=== PATIENT | male | born 1950 | race Caucasian/White ===

== ENCOUNTER → 2016-04-09 | Outpatient (CLI) | payer BC ==
--- NOTE | 2016-04-09 13:34 | US ---
Ultrasound of the Abdomen Complete History: R 10.84, generalized Abdominal pain. Findings: Gallbladder: No shadowing calculi, wall thickening, or pericholecystic fluid. Common bile duct is 3 m m in diameter which is normal. Liver: Diffusely increased in echogenicity and measures 20 cm in length. No definite focal lesions. N o ascites. Renal: Right kidney measures 12 x 6 x 5 cm and left kidney 12 x 6 x 5 cm without hydronephrosis in ei ther kidney. Spleen: Homogeneous and 13 cm in length without splenomegaly. Pancreas: Homogeneous without peripancreatic fluid. Aorta: Visualized upper abdominal aorta demonstrates no aneurysm. IVC: Grossly patent. Impression: 1. No cholelithiasis or biliary ductal dilation. 2. Hepatomegaly and hepatic steatosis which limits evaluation for focal hepatic lesions. 3. No aortic aneurysm. 4. Consider additional CT abdomen and pelvis if clinically indicated.
== END ==
LOC: FIMAGING 12:03
PROVIDERS: ATTEND Internal Medicine Gastroenterology
DX: R10.84 Generalized abdominal pain (principal); R16.0 Hepatomegaly, not elsewhere classified

== ENCOUNTER 2016-07-07 10:37 | Emergency (ER) | payer BC ==
[2016-07-07 10:51] VITALS: RESP 16; TEMP 97.5
--- NOTE | 2016-07-07 11:15 | CPEKG ---
Heart Rate: 64 RR Interval: 938 P-R Interval: 180 QRSD Interval: 104 QT Interval: 400 QTC Interval: 413 P [place]: 10 QRS [place]: 35 T Wave [place]: 14 EKG Severity - NORMAL ECG - EKG Impression: SINUS RHYTHM Electronically Signed By: Jose Shah 07-Jul-2016 11:52:10
[2016-07-07] MEDS ORDERED: NS 500 ML IV ONE (11:23)
--- NOTE | 2016-07-07 11:25 | EDPHY ---
H & P Stated Complaint: increased fatigue HPI/ROS: CHIEF COMPLAINT: Weakness fatigue HISTORY OF PRESENT ILLNESS: Patient complains of several days history of weakness fatigue. Over the past 3-5 days he has been increasingly tired, falling asleep easier. He also feels somewhat lightheaded when he stands up. No actual dizziness, nausea vomiting. No chest pain or shortness of breath. No cough or congestion. No fever chills. No urinary complaints. No abdominal pain. No bleeding any site. No rashes or lesions. No neck pain or stiffness. No headache. No signs of stroke per spouse at bedside. No other associated complaints or modifying factors. Has an appoint with his tool grinder operator today at 3:00 p.m. REVIEW OF SYSTEMS: Ten systems reviewed and are negative unless otherwise noted in the HPI EXAMINATION General Appearance: Alert, no distress Head: normocephalic, atraumatic Eyes: Right pupil is reactive and round. Left eye is plastic. ENT, Mouth: Mucous membranes moist. Uvula midline. No erythema or edema. Neck: Normal inspection, supple, non-tender Respiratory: Lungs are clear to auscultation. No wheezing, rhonchi or crackles. Cardiovascular: Regular rate and rhythm. No murmur. Pulses intact distally. Gastrointestinal: Abdomen is soft and nontender. No tympany rigidity Back: non-tender, no bony abnormalities Neurological: A&O, nonfocal, normal gait. Strength is symmetric. No pronator drift. No dysmetria. Steady gait. NIH stroke scale 0. Skin: Warm and dry, no rash Extremities: Nontender, no pedal edema Psychiatric: Mood and affect normal DIFFERENTIAL DIAGNOSES: Including but not limited to pneumonia, influenza, UTI, electrolyte abnormality , hypothyroid, low testosterone anemia MDM: 11:20 a.m. Generalized fatigue and weakness. No abnormality on EKG or vital signs. No signs of sepsis by history examination. Does have an aortic valvulopathy with systolic murmur that is known to him. Echo was done within the past year. He actually has an appointment with his tool grinder operator today at 3:00 p.m.. 1:00 p.m. Laboratory studies are all within normal limits. Chest x-ray is not revealing of pneumonia. Orthostatics were negative. He is feeling somewhat better since time of arrival. No acute findings on the workup today. He has an appoint with his tool grinder operator today at 3:00 p.m. that he would like to keep. He would like to be discharged home at this time. I do feel he is stable for discharge home to follow up with them accordingly. I do not feel he needs a stat echo, nor does he want 1. He will be discharged home stable condition at this time to follow up with his tool grinder operator today at 3:00 p.m.. SUPERVISION: This patient was independently evaluated without direct examination by the attending physician. Case was discussed with attending physician. Source: Patient, Family, Old records Exam Limitations: No limitations - Personal History Current Tetanus Diphtheria and Acellular Pertussis (TDAP): Yes Tetanus Vaccine Date: < 10 years - Medical/Surgical History Hx Asthma: Yes Hx Chronic Respiratory Disease: No Hx Diabetes: Yes Hx Cardiac Disease: No Hx Renal Disease: No Hx Cirrhosis: No Hx Alcoholism: No Hx HIV/AIDS: No Hx Splenectomy or Spleen Trauma: No Other PMH: Back and neck surgery. Stable thoracic aortic aneurysm with mild aortic insufficiency. Orthopedic procedures. Borderline diabetes. Sleep apnea. Hypertension. Arthritis. Environmental allergies. Recurrent prostatitis. Migraine headaches - Social History Smoking Status: Never smoked Constitutional: Initial Vital Signs Temperature (C) 97.5 F 07/07/16 10:48 Heart Rate 63 07/07/16 10:48 Respiratory Rate 16 07/07/16 10:48 Blood Pressure 117/70 07/07/16 10:48 O2 Sat (%) 97 07/07/16 10:48 O2 Delivery Mode Room Air Allergies/Adverse Reactions: hydrocodone bitartrate [From Vicodin] Allergy (Verified 02/27/16 15:02) Other-Enter Comments Penicillins Allergy (Verified 02/27/16 15:02) Anaphylaxis OPIATES Allergy (Uncoded 07/07/15 09:58) Anxiety Home Medications: Medication Instructions Recorded Albuterol [Proventil Inhaler HFA 1 - 2 puffs IH Q4H PRN 02/23/16 (*)] Ascorbic Acid [Vitamin C 500 mg 500 mg PO DAILY 02/23/16 (*)] Atorvastatin Calcium [Lipitor 10 10 mg PO DAILY 02/23/16 mg (*)] Botulinum Toxin Type A [Botox] 31 - 33 unit IM Q84D 02/23/16 Budesonide/Formoterol 160/4.5 1 puffs IH BID 02/23/16 [Symbicort 160-4.5 Mcg Inh (*)] Calcium Carbonate [Oyster Shell 500 mg PO DAILY 02/23/16 Calcium 500 mg (*)] Calcium Polycarbophil [FIBERCON] 2 tab PO DAILY 02/23/16 Cholecalciferol Vit D3 [Vitamin D3 4,000 units PO DAILY 02/23/16 (*)] Docusate Sodium [Colace 100 MG (*)] 100 mg PO DAILY 02/23/16 Eletriptan HBr [Relpax] 40 mg PO ONCE PRN 02/23/16 Esomeprazole Mag Trihydrate 80 mg PO HS 02/23/16 [Nexium] ISOMETHEPT/ACETAMINOP/DICHLPHN 1 - 2 each PO AD PRN 02/23/16 [MIDRIN CAPSULE] LORazepam [Ativan (*)] 1 mg PO Q6H PRN 02/23/16 Melatonin [Melatonin 3 MG (*)] 10 mg PO HS 02/23/16 Montelukast Sodium [Singulair 10 10 mg PO DAILY 02/23/16 mg (*)] Multivitamins [Multivitamin (*)] 1 each PO DAILY 02/23/16 Simethicone [GAS-X] 125 mg PO DAILY PRN 02/23/16 TESTOSTERONE [Androgel 1.62% pump] 2 guerda TD DAILY 02/23/16 Triamcinolone Acetonide [Nasacort] 2 spray EACHNARE HS 02/23/16 ZOLPIDEM TARTRATE [Ambien CR 12.5 12.5 mg PO HS 02/23/16 mg] celeCOXIB [Celebrex (*)] 200 mg PO DAILY 02/23/16 metFORMIN HCL [Glucophage 500 mg 500 mg PO BIDMEAL 02/23/16 (*)] Tobramycin/Dexameth [Tobradex opht 1 drops OP Q6 PRN 02/27/16 drops (*)] Tamsulosin HCl [Flomax 0.4 MG (*)] 0.4 mg PO DAILY #30 cap 02/29/16 Medical Decision Making - Diagnostics Imaging Results: Imaging Impressions Chest X-Ray 07/07/16 11:23 Impression: 1. Mild peribronchial thickening suggesting airways disease/bronchitis. 2. Mild cardiomegaly. - Data Points Laboratory Results: Laboratory Results 07/07/16 11:23 07/07/16 11:05 07/07/16 07/07/16 07/07/16 11:23 11:05 11:05 WBC 5.56 10^3/uL 10^3/uL (3.80-9.50) RBC 6.43 10^6/uL H 10^6/uL (4.40-6.38) Hgb 15.2 g/dL g/dL (13.7-17.5) Hct 49.3 % % (40.0-51.0) MCV 76.7 fL L fL (81.5-99.8) MCH 23.6 pg L pg (27.9-34.1) MCHC 30.8 g/dL L g/dL (32.4-36.7) RDW 19.7 % H % (11.5-15.2) Plt Count 130 10^3/uL L 10^3/uL (150-400) MPV 10.6 fL fL (8.7-11.7) Neut % (Auto) 62.9 % % (39.3-74.2) Lymph % (Auto) 23.6 % % (15.0-45.0) [place] % (Auto) 9.7 % % (4.5-13.0) Eos % (Auto) 2.9 % % (0.6-7.6) Baso % (Auto) 0.5 % % (0.3-1.7) Nucleat RBC Rel Count 0.0 % % (0.0-0.2) Absolute Neuts (auto) 3.50 10^3/uL 10^3/uL (1.70-6.50) Absolute Lymphs (auto) 1.31 10^3/uL 10^3/uL (1.00-3.00) Absolute Monos (auto) 0.54 10^3/uL 10^3/uL (0.30-0.80) Absolute Eos (auto) 0.16 10^3/uL 10^3/uL (0.03-0.40) Absolute Basos (auto) 0.03 10^3/uL 10^3/uL (0.02-0.10) Absolute Nucleated RBC 0.00 10^3/uL 10^3/uL (0-0.01) Immature Gran % 0.4 % % (0.0-1.1) Immature Gran # 0.02 10^3/uL 10^3/uL (0.00-0.10) PT 13.3 SEC SEC (12.0-15.0) INR 1.02 (0.83-1.16) APTT 26.2 SEC SEC (23.0-38.0) Sodium 142 mEq/L mEq/L (134-144) Potassium 4.5 mEq/L mEq/L (3.5-5.2) Chloride 107 mEq/L mEq/L (97-110) Carbon Dioxide 29 mEq/l mEq/l (22-31) Anion Gap 6 mEq/L L mEq/L (8-16) BUN 25 mg/dL H mg/dL (7-23) Creatinine 0.9 mg/dL mg/dL (0.7-1.3) Estimated GFR > 60 Glucose 86 mg/dL mg/dL (70-100) Calcium 9.2 mg/dL mg/dL (8.5-10.4) Total Bilirubin 0.6 mg/dL mg/dL (0.1-1.4) Conjugated Bilirubin 0.3 mg/dL mg/dL (0.0-0.5) Unconjugated Bilirubin 0.3 mg/dL mg/dL (0.0-1.1) AST 21 IU/L IU/L (17-59) ALT 35 IU/L IU/L (21-72) Alkaline Phosphatase 58 IU/L IU/L (38-126) Troponin I < 0.012 ng/mL ng/mL (0-0.034) NT-Pro-B Natriuret Pep 61 pg/mL pg/mL (0-125) Total Protein 6.6 g/dL g/dL (6.3-8.2) Albumin 3.9 g/dL g/dL (3.5-5.0) Lipase 90.0 IU/L IU/L (23-300) TSH 1.810 uIU/mL uIU/mL (0.465-4.680) Total Testosterone 395 ng/dL ng/dL (71.8-623) Medications Given: Discontinued Medications Sodium Chloride (Ns) 500 mls @ 0 mls/hr IV ONCE ONE PRN Reason: As Directed Stop: 07/07/16 11:24 Last Admin: 07/07/16 11:29 Dose: 500 mls Departure - Departure Disposition: Home, Routine, Self-Care Clinical Impression: Weakness Condition: Good Instructions: Weakness (ED) Additional Instructions: Follow-up today with your tool grinder operator. Return to ER for any worsening symptoms , dizziness, vomiting Referrals: Ele Valdes MD [Primary Care Provider] - As per Instructions
[2016-07-07 11:29] LABS: % IMMATURE GRANULYOCYTES 0.4 % (0.0-1.1); ABSOLUTE IMMATURE GRANULOCYTES 0.02 10^3/uL (0.00-0.10); ADD DIFF? NO; ADD MORPH? NO; ADD SCAN? NO; ATYPICAL LYMPHOCYTE FLAG 10 (0-99); FRAGMENT RBC FLAG 0 (0-99); HEMATOCRIT 49.3 % (40.0-51.0); HEMOGLOBIN 15.2 g/dL (13.7-17.5); LEFT SHIFT FLG 0 (0-99); LIPEMIA HEMOLYSIS FLAG 80 (0-99); MEAN CELL HEMOGLOBIN 23.6 pg (27.9-34.1); MEAN CELL HEMOGLOBIN CONCENTR. 30.8 g/dL (32.4-36.7); MEAN CELL VOLUME 76.7 fL (81.5-99.8); MEAN PLATELET VOLUME 10.6 fL (8.7-11.7); PLATELET CLUMPS FLAG 20 (0-99); PLATELET COUNT 130 10^3/uL (150-400); RED BLOOD CELL COUNT 6.43 10^6/uL (4.40-6.38); RED CELL DISTRIBUTION WIDTH 19.7 % (11.5-15.2)
[2016-07-07 11:38] LABS: INR 1.02 (0.83-1.16); PROTIME(PATIENT) 13.3 SEC (12.0-15.0)
[2016-07-07 11:39] LABS: APTT 26.2 SEC (23.0-38.0)
[2016-07-07 11:46] LABS: ALANINE AMINOTRANSFERASE 35 IU/L (21-72); ALBUMIN 3.9 g/dL (3.5-5.0); ALKALINE PHOSPHATASE 58 IU/L (38-126); ANION GAP 6 mEq/L (8-16); ASPARTATE AMINOTRANSFERASE 21 IU/L (17-59); BILIRUBIN,TOTAL 0.6 mg/dL (0.1-1.4); BILIRUBIN-CONJUGATED 0.3 mg/dL (0.0-0.5); BILIRUBIN-UNCONJUGATED 0.3 mg/dL (0.0-1.1); CALCIUM 9.2 mg/dL (8.5-10.4); CARBON DIOXIDE 29 mEq/l (22-31); CHLORIDE 107 mEq/L (97-110); CREATININE 0.9 mg/dL (0.7-1.3); GLOMERULAR FILTRATION RATE > 60; GLUCOSE 86 mg/dL (70-100); POTASSIUM 4.5 mEq/L (3.5-5.2); SODIUM 142 mEq/L (134-144); TOTAL PROTEIN 6.6 g/dL (6.3-8.2)
[2016-07-07 11:58] LABS: TROPONIN I < 0.012 ng/mL (0-0.034)
[2016-07-07 12:18] LABS: TESTOSTERONE TOTAL 395 ng/dL (71.8-623)
[2016-07-07 13:24] VITALS: BP 130/76; PULSE 68; O2SAT 95
== END 2016-07-07 13:24 | disposition home or self-care (01) ==
DX: R53.1 Weakness (principal); J45.909 Unspecified asthma, uncomplicated

== ENCOUNTER 2016-09-17 15:15 | Emergency (ER) | payer BC ==
--- NOTE | 2016-09-17 15:54 | EDPHY ---
H & P Stated Complaint: fever back pain Time Seen by Provider: 09/17/16 15:31 HPI/ROS: Chief Complaint: Fever, recent back surgery HPI: 66-year-old male who is 5 days status post L3-4, L4-[address] Mukul Roa at [facility]. Patient has been having increasing fevers since discharge. Was 102.8 yesterday. Today measured temperature to 102.8. He has not had any other associated symptoms. No increasing pain at the surgery site. Has a chronic cough but no changes in this. No urinary symptoms. No chest pain or shortness of breath. Has had some constipation but had relief with this after Fleet enema this morning. No nausea or vomiting. No headache. No neck stiffness. He called the office instructed to present to the emergency depart for further evaluation. He also has a history of some chronic inflammation is left toe and started a prednisone taper this morning. Patient took 60 mg of prednisone at 10:00 a.m.. ROS: 10 point Review of Systems is negative except as noted in the HPI. PMH: Asthma, BPH, aortic regurgitation, migraine headache, diabetes, slight area enlargement in the abdomen Allergies: Penicillin Social History: No smoking, no alcohol, no recreational drug use Family History: non-contributory Physical Exam: Gen: Awake, Alert, No Distress HEENT: Bilateral TMs are normal Nose: no rhinorrhea Eyes: PERRLA, EOMI Mouth: Moist mucosa normal oropharynx Neck: Supple, no JVD Chest: nontender, lungs clear to auscultation Heart: S1, S2 normal, no murmur Abd: Soft, non-tender, no guarding Back: no CVA tenderness, he has some surgical incision and drain site. There is mild erythema at the top. There is no dehiscence. There is no purulent discharge. There is no fluctuance. There is no tenderness on examination. Ext: no edema, non-tender Skin: no rash Neuro: CN II-XII intact, Sensation grossly intact, Strength 5/5 in bilateral upper and lower extremities - Personal History Current Tetanus/Diphtheria Vaccine: Yes Current Tetanus Diphtheria and Acellular Pertussis (TDAP): Yes Tetanus Vaccine Date: < 10 years - Medical/Surgical History Hx Asthma: Yes Hx Chronic Respiratory Disease: No Hx Diabetes: Yes Hx Cardiac Disease: No Hx Renal Disease: No Hx Cirrhosis: No Hx Alcoholism: No Hx HIV/AIDS: No Hx Splenectomy or Spleen Trauma: No Other PMH: Back and neck surgery. Stable thoracic aortic aneurysm with mild aortic insufficiency. Orthopedic procedures. Borderline diabetes. Sleep apnea. Hypertension. Arthritis. Environmental allergies. Recurrent prostatitis. Migraine headaches - Social History Smoking Status: Never smoked Constitutional: Initial Vital Signs Temperature (C) 38.9 C H 09/17/16 15:18 Heart Rate 85 09/17/16 15:18 Respiratory Rate 16 09/17/16 15:18 Blood Pressure 132/71 H 09/17/16 15:18 O2 Sat (%) 89 L 09/17/16 15:18 O2 Delivery Mode Room Air Allergies/Adverse Reactions: hydrocodone bitartrate [From Vicodin] Allergy (Verified 02/27/16 15:02) Other-Enter Comments Penicillins Allergy (Verified 02/27/16 15:02) Anaphylaxis OPIATES Allergy (Uncoded 07/07/15 09:58) Anxiety Home Medications: Medication Instructions Recorded Albuterol [Proventil Inhaler HFA 1 - 2 puffs IH Q4H PRN 02/23/16 (*)] Ascorbic Acid [Vitamin C 500 mg 500 mg PO DAILY 02/23/16 (*)] Atorvastatin Calcium [Lipitor 10 10 mg PO DAILY 02/23/16 mg (*)] Botulinum Toxin Type A [Botox] 31 - 33 unit IM Q84D 02/23/16 Budesonide/Formoterol 160/4.5 1 puffs IH BID 02/23/16 [Symbicort 160-4.5 Mcg Inh (*)] Calcium Carbonate [Oyster Shell 500 mg PO DAILY 02/23/16 Calcium 500 mg (*)] Calcium Polycarbophil [FIBERCON] 2 tab PO DAILY 02/23/16 Cholecalciferol Vit D3 [Vitamin D3 4,000 units PO DAILY 02/23/16 (*)] Docusate Sodium [Colace 100 MG (*)] 100 mg PO DAILY 02/23/16 Eletriptan HBr [Relpax] 40 mg PO ONCE PRN 02/23/16 Esomeprazole Mag Trihydrate 80 mg PO HS 02/23/16 [Nexium] ISOMETHEPT/ACETAMINOP/DICHLPHN 1 - 2 each PO AD PRN 02/23/16 [MIDRIN CAPSULE] LORazepam [Ativan (*)] 1 mg PO Q6H PRN 02/23/16 Melatonin [Melatonin 3 MG (*)] 10 mg PO HS 02/23/16 Montelukast Sodium [Singulair 10 10 mg PO DAILY 02/23/16 mg (*)] Multivitamins [Multivitamin (*)] 1 each PO DAILY 02/23/16 Simethicone [GAS-X] 125 mg PO DAILY PRN 02/23/16 TESTOSTERONE [Androgel 1.62% pump] 2 guerda TD DAILY 02/23/16 Triamcinolone Acetonide [Nasacort] 2 spray EACHNARE HS 02/23/16 ZOLPIDEM TARTRATE [Ambien CR 12.5 12.5 mg PO HS 02/23/16 mg] celeCOXIB [Celebrex (*)] 200 mg PO DAILY 02/23/16 metFORMIN HCL [Glucophage 500 mg 500 mg PO BIDMEAL 02/23/16 (*)] Tobramycin/Dexameth [Tobradex opht 1 drops OP Q6 PRN 02/27/16 drops (*)] Tamsulosin HCl [Flomax 0.4 MG (*)] 0.4 mg PO DAILY #30 cap 02/29/16 levOFLOXACIN [levAQUIN (*)] 500 mg PO DAILY #10 tab 09/17/16 Medical Decision Making - Diagnostics Imaging Results: Imaging Impressions Chest X-Ray 09/17/16 15:54 Impression: 1. Development of patchy left basilar alveolar opacity, pneumonia versus atelectasis. 2. Suspect airways disease, chronic bronchitis. 3. Query low-grade congestive heart failure/fluid overload without theresa pulmonary edema. Imaging: I viewed and interpreted images myself ED Course/Re-evaluation: I have reviewed the patient's chest x-ray and laboratory results. There is possible left lower developing atelectasis versus infiltrate. I think this is most likely the source of infection. He is otherwise very well appearing. He states he feels better than he has in a long time. I have discussed with Brissa, physician health information assistant sales and marketing professional for Dr. Roa. Given findings is likely source of infection no other source at this time will plan on starting the patient on oral antibiotics. - Data Points Laboratory Results: Laboratory Results 09/17/16 15:50 09/17/16 15:50 09/17/16 09/17/16 09/17/16 15:50 15:50 15:30 WBC 7.59 10^3/uL 10^3/uL (3.80-9.50) RBC 4.36 10^6/uL L 10^6/uL (4.40-6.38) Hgb 11.8 g/dL L g/dL (13.7-17.5) Hct 35.5 % L % (40.0-51.0) MCV 81.4 fL L fL (81.5-99.8) MCH 27.1 pg L pg (27.9-34.1) MCHC 33.2 g/dL g/dL (32.4-36.7) RDW 16.3 % H % (11.5-15.2) Plt Count 168 10^3/uL 10^3/uL (150-400) MPV 10.6 fL fL (8.7-11.7) Neut % (Auto) 90.6 % H % (39.3-74.2) Lymph % (Auto) 4.3 % L % (15.0-45.0) [place] % (Auto) 4.3 % L % (4.5-13.0) Eos % (Auto) 0.1 % L % (0.6-7.6) Baso % (Auto) 0.3 % % (0.3-1.7) Nucleat RBC Rel Count 0.0 % % (0.0-0.2) Absolute Neuts (auto) 6.87 10^3/uL H 10^3/uL (1.70-6.50) Absolute Lymphs (auto) 0.33 10^3/uL L 10^3/uL (1.00-3.00) Absolute Monos (auto) 0.33 10^3/uL 10^3/uL (0.30-0.80) Absolute Eos (auto) 0.01 10^3/uL L 10^3/uL (0.03-0.40) Absolute Basos (auto) 0.02 10^3/uL 10^3/uL (0.02-0.10) Absolute Nucleated RBC 0.00 10^3/uL 10^3/uL (0-0.01) Immature Gran % 0.4 % % (0.0-1.1) Immature Gran # 0.03 10^3/uL 10^3/uL (0.00-0.10) ESR 52 MM/HR H MM/HR (0-20) Sodium 129 mEq/L L mEq/L (134-144) Potassium 4.7 mEq/L mEq/L (3.5-5.2) Chloride 96 mEq/L L mEq/L (97-110) Carbon Dioxide 24 mEq/l mEq/l (22-31) Anion Gap 9 mEq/L mEq/L (8-16) BUN 14 mg/dL mg/dL (7-23) Creatinine 1.0 mg/dL mg/dL (0.7-1.3) Estimated GFR > 60 Glucose 200 mg/dL H mg/dL (70-100) Calcium 8.6 mg/dL mg/dL (8.5-10.4) C-Reactive Protein 198.0 mg/L H mg/L (<10.0) Urine Color YELLOW Urine Appearance CLEAR Urine pH 8.0 H (5.0-7.5) Ur Specific [place] 1.003 (1.002-1.030) Urine Protein NEGATIVE (NEGATIVE) Urine Ketones NEGATIVE (NEGATIVE) Urine Blood NEGATIVE (NEGATIVE) Urine Nitrate NEGATIVE (NEGATIVE) Urine Bilirubin NEGATIVE (NEGATIVE) Urine Urobilinogen NEGATIVE EU EU (0.2-1.0) Ur Leukocyte Esterase NEGATIVE (NEGATIVE) Urine Glucose NEGATIVE (NEGATIVE) Medications Given: Discontinued Medications Acetaminophen (Tylenol) 1,000 mg PO EDNOW ONE Stop: 09/17/16 16:06 Last Admin: 09/17/16 16:05 Dose: 1,000 mg Departure - Departure Disposition: Home, Routine, Self-Care Clinical Impression: Pneumonia Condition: Good Instructions: Pneumonia (ED) Additional Instructions: Follow up with primary care physician Dr. gonzalez in 2-3 days for re-evaluation Referrals: Ele Valdes MD [Primary Care Provider] - As per Instructions Prescriptions: levOFLOXACIN [levAQUIN (*)] 500 mg PO DAILY #10 tab
[2016-09-17 16:03] LABS: % IMMATURE GRANULYOCYTES 0.4 % (0.0-1.1); ABSOLUTE IMMATURE GRANULOCYTES 0.03 10^3/uL (0.00-0.10); ADD DIFF? NO; ADD MORPH? NO; ADD SCAN? NO; ATYPICAL LYMPHOCYTE FLAG 0 (0-99); FRAGMENT RBC FLAG 0 (0-99); HEMATOCRIT 35.5 % (40.0-51.0); HEMOGLOBIN 11.8 g/dL (13.7-17.5); LEFT SHIFT FLG 30 (0-99); LIPEMIA HEMOLYSIS FLAG 80 (0-99); MEAN CELL HEMOGLOBIN 27.1 pg (27.9-34.1); MEAN CELL HEMOGLOBIN CONCENTR. 33.2 g/dL (32.4-36.7); MEAN CELL VOLUME 81.4 fL (81.5-99.8); MEAN PLATELET VOLUME 10.6 fL (8.7-11.7); PLATELET CLUMPS FLAG 0 (0-99); PLATELET COUNT 168 10^3/uL (150-400); RED BLOOD CELL COUNT 4.36 10^6/uL (4.40-6.38); RED CELL DISTRIBUTION WIDTH 16.3 % (11.5-15.2)
[2016-09-17] MEDS ORDERED: ACETAMINOPHEN 500 MG TAB ONE (16:04)
[2016-09-17] MEDS ORDERED: ACETAMINOPHEN 500 MG TAB PO ONE (16:05)
[2016-09-17 16:16] LABS: COLOR YELLOW; LEUKOCYTE ESTERASE,URINE NEGATIVE (NEGATIVE); NITRITE,URINE NEGATIVE (NEGATIVE)
[2016-09-17 16:27] LABS: ANION GAP 9 mEq/L (8-16); CALCIUM 8.6 mg/dL (8.5-10.4); CARBON DIOXIDE 24 mEq/l (22-31); CHLORIDE 96 mEq/L (97-110); GLOMERULAR FILTRATION RATE > 60; GLUCOSE 200 mg/dL (70-100); POTASSIUM 4.7 mEq/L (3.5-5.2); SODIUM 129 mEq/L (134-144)
[2016-09-17 17:16] LABS: SEDIMENTATION RATE 52 MM/HR (0-20)
[2016-09-17 19:18] VITALS: BP 124/77; PULSE 78; RESP 20; TEMP 98.2; O2SAT 92
== END 2016-09-17 19:18 | disposition home or self-care (01) ==
DX: J18.9 Pneumonia, unspecified organism (principal); E11.9 Type 2 diabetes mellitus without complications; J45.909 Unspecified asthma, uncomplicated; I10 Essential (primary) hypertension; Z79.84 Long term (current) use of oral hypoglycemic drugs

== ENCOUNTER 2016-09-21 11:21 | Emergency (ER) | payer BC ==
[2016-09-21 11:25] VITALS: BP 129/68; PULSE 76; RESP 18; TEMP 97.7; O2SAT 91
--- NOTE | 2016-09-21 11:43 | EDPHY ---
HPI/HX/ROS/PE/MDM Narrative: CHIEF COMPLAINT: Request evaluation of surgical wound HPI: This patient is a 66-year-old male status 9 days post-L3-4, L4-[address] performed [address] Mukul Roa who presents to the Emergency Department requesting an evaluation of his surgical wound. He was evaluated in this facility with complaints of fever on 09/17 and was started on Levaquin for treatment of pneumonia seen on x-ray. At time of arrival today, he states that he is feeling much better. He denies fever, cough, or additional complaints. His cleans his surgical wound daily and is concerned that she has seen areas of swelling and discharge and requests evaluation by a medical professional. REVIEW OF SYSTEMS: Aside from elements discussed in the HPI, a comprehensive 10-point review of systems was reviewed and is negative. PMH: 1. 9-days post spinal fusion 2. Currently taking Levaquin for pneumonia SOCIAL HISTORY: ; at bedside PHYSICAL EXAM: General:Patient is alert, in no acute distress. ENT:Eyes are normal to inspection. ENT inspection normal. Neck: Normal inspection. Full range of motion. Respiratory:No respiratory distress. Breath sounds normal bilaterally. Cardiovascular: Regular rate and rhythm. Strong peripheral pulses. Normal cap refill. Abdomen:The abdomen is nontender to palpation. There are no peritoneal signs. There are normal bowel sounds. Back: Normal to inspection. No tenderness to palpation. Skin: Normal color. No rash. Warm and dry. Extremities: Normal appearance. Full range of motion. Neuro: Oriented x3. Normal motor function. Normal sensory function. ED Course: 66-year-old male status 9-days post spinal fusion visits requesting a wound check of his surgical site. He was recently seen in the ED on 09/17 for complaint of fever; he ultimately was found to have pneumonia and has been compliant with course of Levaquin. He reports improvement to prior complaints. Lungs are clear on exam. Surgical site is healing appropriately. There is no surrounding erythema, discharge, or induration. The patient is relieved. He has a scheduled follow-up appointment with his surgeon. He understands return precautions and will be discharged home in good condition. General Time Seen by Provider: 09/21/16 11:39 Initial Vital Signs: Initial Vital Signs Temperature (C) 36.5 C 09/21/16 11:22 Heart Rate 76 09/21/16 11:22 Respiratory Rate 18 09/21/16 11:22 Blood Pressure 129/68 H 09/21/16 11:22 O2 Sat (%) 91 L 09/21/16 11:22 O2 Delivery Mode Room Air Allergies/Adverse Reactions: hydrocodone bitartrate [From Vicodin] Allergy (Verified 02/27/16 15:02) Other-Enter Comments Penicillins Allergy (Verified 02/27/16 15:02) Anaphylaxis OPIATES Allergy (Uncoded 07/07/15 09:58) Anxiety Home Medications: Medication Instructions Recorded Albuterol [Proventil Inhaler HFA 1 - 2 puffs IH Q4H PRN 02/23/16 (*)] Ascorbic Acid [Vitamin C 500 mg 500 mg PO DAILY 02/23/16 (*)] Atorvastatin Calcium [Lipitor 10 10 mg PO DAILY 02/23/16 mg (*)] Botulinum Toxin Type A [Botox] 31 - 33 unit IM Q84D 02/23/16 Budesonide/Formoterol 160/4.5 1 puffs IH BID 02/23/16 [Symbicort 160-4.5 Mcg Inh (*)] Calcium Carbonate [Oyster Shell 500 mg PO DAILY 02/23/16 Calcium 500 mg (*)] Calcium Polycarbophil [FIBERCON] 2 tab PO DAILY 02/23/16 Cholecalciferol Vit D3 [Vitamin D3 4,000 units PO DAILY 02/23/16 (*)] Docusate Sodium [Colace 100 MG (*)] 100 mg PO DAILY 02/23/16 Eletriptan HBr [Relpax] 40 mg PO ONCE PRN 02/23/16 Esomeprazole Mag Trihydrate 80 mg PO HS 02/23/16 [Nexium] ISOMETHEPT/ACETAMINOP/DICHLPHN 1 - 2 each PO AD PRN 02/23/16 [MIDRIN CAPSULE] LORazepam [Ativan (*)] 1 mg PO Q6H PRN 02/23/16 Melatonin [Melatonin 3 MG (*)] 10 mg PO HS 02/23/16 Montelukast Sodium [Singulair 10 10 mg PO DAILY 02/23/16 mg (*)] Multivitamins [Multivitamin (*)] 1 each PO DAILY 02/23/16 Simethicone [GAS-X] 125 mg PO DAILY PRN 02/23/16 TESTOSTERONE [Androgel 1.62% pump] 2 guerda TD DAILY 02/23/16 Triamcinolone Acetonide [Nasacort] 2 spray EACHNARE HS 02/23/16 ZOLPIDEM TARTRATE [Ambien CR 12.5 12.5 mg PO HS 02/23/16 mg] celeCOXIB [Celebrex (*)] 200 mg PO DAILY 02/23/16 metFORMIN HCL [Glucophage 500 mg 500 mg PO BIDMEAL 02/23/16 (*)] Tobramycin/Dexameth [Tobradex opht 1 drops OP Q6 PRN 02/27/16 drops (*)] Tamsulosin HCl [Flomax 0.4 MG (*)] 0.4 mg PO DAILY #30 cap 02/29/16 levOFLOXACIN [levAQUIN (*)] 500 mg PO DAILY #10 tab 09/17/16 Departure - Departure Disposition: Home, Routine, Self-Care Clinical Impression: Visit for wound check Condition: Good Instructions: Surgical Site Infections (ED) Additional Instructions: 1. We have included a handout on surgical site infections to help you know what to look out for. Some redness and swelling around the wound is expected. However , you should return immediately for: increased redness, increased swelling, significant discharge from the wound, severe pain at the site of the wound, high fever, or other serious concerns. 2. Continue to take the full course of Levaquin as prescribed. 3. Follow-up with your surgeon as scheduled. Referrals: Ele Valdes MD [Primary Care Provider] - As per Instructions Report Scribed for: Kulwinder Fernando Report Scribed by: Megan May Date of Report: 09/21/16 Time of Report: 11:43 Physician Review and Approval Statement: Portions of this note were transcribed by an ED scribe. I personally performed the history, physical exam, and medical decision making; and confirm the accuracy of the information in the transcribed note.
== END 2016-09-21 12:05 | disposition home or self-care (01) ==
DX: Z48.01 Encounter for change or removal of surgical wound dressing (principal)

== ENCOUNTER → 2016-10-29 | Outpatient (CLI) | payer BC | LOC: FIMAGING 16:00 | PROVIDERS: ATTEND Family Medicine | DX: J18.9 Pneumonia, unspecified organism (principal); I51.7 Cardiomegaly ==